=== PATIENT | female | born 1935 | race Caucasian/White ===

== ENCOUNTER 2018-07-07 12:13 | Inpatient (IN) ==
[2018-07-07] MEDS: *HR* OxyCODONE/APAP 7.5/325 TABLET PO PRN (18:07)
[2018-07-07] MEDS: Gabapentin 100 MG CAPSULE PO SCH (20:50)
[2018-07-07] MEDS ORDERED: Gabapentin 100 MG CAPSULE PO SCH (21:00)
[2018-07-08] MEDS: *HR* OxyCODONE/APAP 7.5/325 TABLET PO PRN ×3 (06:00→19:31)
[2018-07-08] MEDS ORDERED: NON-FORMULARY MEDICATION 1 EACH EACH (Alendronate Sodium [Fosamax] 10 MG) PO SCH (09:00)
[2018-07-08] MEDS: Cholecalciferol (D-3) 1,000 UNIT TABLET PO SCH (09:37)
[2018-07-08] MEDS: BuPROPion XL (24 HR) 150 MG TABLET PO SCH (09:37)
[2018-07-08] MEDS: Gabapentin 100 MG CAPSULE PO SCH ×2 (09:37→19:31)
[2018-07-08] MEDS: Ondansetron ODT 4 MG TAB.RAPDIS PO SCH (09:37)
[2018-07-08] MEDS: Furosemide 20 MG TABLET PO SCH (09:37)
[2018-07-08] MEDS: *HR* FentaNYL PATCH 12 MCG PATCH TD SCH (15:18)
--- NOTE | 2018-07-08 15:47 | Internal Med History&Physical ---
Date of Encounter: 07/08/18 Time of Encounter: 15:15 Assessment and Plan (1) Dyspnea on exertion Current visit: No Status: Acute Etiology not determined with certainty. Room air oximetry will be checked on [address] will be done (2) GERD (gastroesophageal reflux disease) Current visit: Yes Status: Acute Continue PPI. Qualifiers: Esophagitis presence: esophagitis presence not specified Qualified Code(s): K21.9 - Gastro-esophageal reflux disease without esophagitis (3) Anemia Current visit: Yes Status: Acute Possibly due to chronic kidney disease. Check anemia testing in a.m. Qualifiers: Anemia type: unspecified type Qualified Code(s): D64.9 - Anemia, unspecified (4) DJD (degenerative joint disease) Current visit: Yes Status: Chronic Continue present meds Qualifiers: Osteoarthritis location: unspecified site Osteoarthritis type: unspecified Qualified Code(s): M19.90 - Unspecified osteoarthritis, unspecified site (5) HTN (hypertension) Current visit: No Status: Chronic Continue lisinopril Qualifiers: Hypertension type: essential hypertension Qualified Code(s): I10 - Essential (primary) hypertension (6) CKD (chronic kidney disease) Current visit: No Status: Chronic Present on all labs since 2014. Continue to monitor. Qualifiers: Chronic kidney disease stage: stage 3 (moderate) Qualified Code(s): N18.3 - Chronic kidney disease, stage 3 (moderate) Internal Medicine - H&P: HPI Chief complaint: Dyspnea Admitted From: Hospital to Hospital Transfer Plans for Post Hospital Care: Home History of present illness: Ms. Liao is a 83 year old female who was hospitalized at [facility] July 03 after she was sent to ER from a cardiology outpatient appointment because of dyspnea on exertion and chest discomfort. Workup during hospitalization included a Regadenoson EST which showed no EKG or perfusion evidence of ischemia. Echocardiogram on 07/03/2018 showed LVEF of 60-65%. Interventricular septum and posterior wall thickness measurements were normal. The E/A ratio was 1.2. There was mild mitral regurgitation and mild tricuspid regurgitation reported. There was reported to be no pulmonary hypertension although estimated RVSP was not recorded. She was transferred to [facility] swing bed for rehabilitation therapy prior to returning to independent living. Cardiovascular history is pertinent for hypertension. She denies [place] DVT or pulmonary embolus. Past Med Surg Social Fam HX - Past Medical History Medical history: hypertension, other Psychiatric history: depression - Past Surgical History Additional surgical history: back surgery x 3 - Social History Smoking Status: Never smoker Smokeless Tobacco Status: No Alcohol use: none Drug use: none - Family History Mother History Unknown: Yes Internal Medicine - H&P: Meds Alendronate Sodium [Fosamax] 10 mg PO DAILY 06/05/18 [History] BuPROPion XL (24 HR) [Wellbutrin Xl] 300 mg PO DAILY 06/05/18 [History] Cholecalciferol (Vitamin D3) [Vitamin D3] 2,000 unit PO DAILY 06/05/18 [History] Esomeprazole Magnesium [Nexium] 40 mg PO DAILY 06/05/18 [History] Lisinopril [Zestril] 10 mg PO DAILY 06/05/18 [History] Ondansetron HCl [Zofran] 4 mg PO DAILY 06/05/18 [History] Simvastatin [Zocor] 10 mg PO DAILY 06/05/18 [History] Furosemide [Lasix] 10 mg PO DAILY #30 tablet 07/04/18 [Rx] FentaNYL PATCH [Duragesic] 12 mcg TD Q72H 6 Days #2 patch.td72 07/07/18 [Rx] Gabapentin [Neurontin] 100 mg PO BID #4 capsule 07/07/18 [Rx] Allergy/AdvReac Type Severity Reaction Status Date / Time Amoxicillin [From Augmentin] Allergy Hives Verified 06/05/18 12:23 clavulanic acid Allergy Hives Verified 06/05/18 12:23 [From Augmentin] All Systems PM: A 10-system review of systems was performed and is negative for pertinent findings except as documented above in the HPI. Review of systems: Gen.: She states her weight has been overall stable in the past year Cardiovascular: As per history of present illness Respiratory: She smoked from approximately age [age] up to one pack per day. She denies known chronic lung disease. GI: She has hiatal hernia/GERD. She denies disorders of her liver gallbladder or exocrine pancreas : She was unaware she had chronic kidney disease. She denies other kidney or bladder disorders Neurologic: She denies large distribution strokes or seizures. Endocrine: She has hyperlipidemia. She denies diabetes or thyroid disease Hematology/oncology: She reports cervical cancer with curative hysterectomy in 1963. She was unaware she had anemia. She denies internal malignancies Psychiatric: She has anxiety depression but denies other mental health diagnoses. [place] skeletal: She has DJD. She reports previous back fractures with resultant chronic back pain but denies gout or other bone joint or muscle disorders. - Constitutional Vitals: Temp Pulse Resp BP Pulse Ox 98.1 F 95 15 126/69 92 07/08/18 06:41 07/08/18 06:41 07/08/18 06:41 07/08/18 06:41 07/08/18 06:41 Exam: Gen.: She is a well-developed well-nourished female sitting in a chair at bedside who appears in no acute distress HEENT: Head is atraumatic and normocephalic. Eyes: EOMI. There is no scleral icterus. Mouth: Mucosa is moist. Neck: Supple and nontender. There is no thyromegaly or adenopathy noted. Heart: Regular without murmurs gallops or ectopics Lungs: No wheezes or crackles are heard. Abdomen: Soft and nontender. No masses or guarding are noted. Exam is somewhat limited because she is in a seated position. Extremities: She has chronic venous stasis pigmentation changes of her lower legs. Dorsalis pedis and posttibial pulses are trace to 1+ palpable bilaterally. Neurologic: Mental status: She is talkative and a good historian. Cranial nerves: Smile is symmetric. Forehead wrinkles bilaterally. Tongue protrudes midline. EOMI. Motor: There is no pronator drift. Cerebellar: Finger to nose is intact bilaterally. Skin: Warm and dry
[2018-07-09] MEDS: *HR* OxyCODONE/APAP 7.5/325 TABLET PO PRN ×3 (06:49→23:38)
[2018-07-09] MEDS: Gabapentin 100 MG CAPSULE PO SCH ×2 (10:53→20:45)
[2018-07-09] MEDS: Furosemide 20 MG TABLET PO SCH (10:53)
[2018-07-09] MEDS: Cholecalciferol (D-3) 1,000 UNIT TABLET PO SCH (10:53)
[2018-07-09] MEDS: BuPROPion XL (24 HR) 150 MG TABLET PO SCH (10:53)
[2018-07-09] MEDS: Ondansetron ODT 4 MG TAB.RAPDIS PO SCH (10:54)
--- NOTE | 2018-07-09 17:31 | Internal Med Progress Note ---
Date of Encounter: 07/09/18 Time of Encounter: 17:24 - Assessment and plan (1) Dyspnea on exertion Current Visit: No Status: Acute Assessment and plan: July 09. Continue present regimen. Check labs in a.m. (2) GERD (gastroesophageal reflux disease) Current Visit: Yes Status: Acute Assessment and plan: July 09. Continue PPI. Qualifiers: Esophagitis presence: esophagitis presence not specified Qualified Code(s): K21.9 - Gastro-esophageal reflux disease without esophagitis (3) Anemia Current Visit: Yes Status: Acute Assessment and plan: July 09. Check labs in a.m. Qualifiers: Anemia type: unspecified type Qualified Code(s): D64.9 - Anemia, unspecified (4) DJD (degenerative joint disease) Current Visit: Yes Status: Chronic Assessment and plan: July 09. Continue present meds Qualifiers: Osteoarthritis location: unspecified site Osteoarthritis type: unspecified Qualified Code(s): M19.90 - Unspecified osteoarthritis, unspecified site (5) HTN (hypertension) Current Visit: No Status: Chronic Assessment and plan: July 09. Continue lisinopril Qualifiers: Hypertension type: essential hypertension Qualified Code(s): I10 - Essential (primary) hypertension (6) CKD (chronic kidney disease) Current Visit: No Status: Chronic Assessment and plan: July 09. Continue to monitor Qualifiers: Chronic kidney disease stage: stage 3 (moderate) Qualified Code(s): N18.3 - Chronic kidney disease, stage 3 (moderate) - Subjective Interval history: July 09. She has no new complaints and feels well. She denies dyspnea or chest pain. - Constitutional Vitals: Temp Pulse Resp BP Pulse Ox 98.2 F 93 16 94/55 95 07/09/18 11:09 07/09/18 11:09 07/09/18 11:09 07/09/18 11:09 07/09/18 11:09 Exam: She is resting comfortably in a chair at bedside and appears in no acute distress. Her affect is bright and cheerful. I reviewed her medications. Consult Discharge Plan - Plan Referrals: Delvin Amador MD [Primary Care Provider] - 1 week
[2018-07-10] MEDS: *HR* OxyCODONE/APAP 7.5/325 TABLET PO PRN ×3 (06:43→18:48)
[2018-07-10] MEDS: Ondansetron ODT 4 MG TAB.RAPDIS PO SCH (08:27)
[2018-07-10] MEDS: Furosemide 20 MG TABLET PO SCH (08:27)
[2018-07-10] MEDS: BuPROPion XL (24 HR) 150 MG TABLET PO SCH (08:27)
[2018-07-10] MEDS: Cholecalciferol (D-3) 1,000 UNIT TABLET PO SCH (08:27)
[2018-07-10] MEDS: Gabapentin 100 MG CAPSULE PO SCH ×2 (08:27→20:26)
[2018-07-10 08:54] LABS: Basophils # 0.1 K/mcL (0.0-0.2); Basophils % 0.8 %; Eosinophils # 0.4 K/mcL (0.0-0.6); Eosinophils % 3.9 %; Hemoglobin 11.6 g/dL (11.5-15.4); Immature Granulocytes % 0.7 % (0-4); Mean Corpuscular HGB Conc 32.2 g/dL (31.6-35.5); Mean Corpuscular Volume 99.4 fL (83.0-100.0); Mean Platelet Volume 10.8 fL (9.4-12.4); Monocytes % 9.4 %; Neutrophils # 6.5 K/mcL (1.6-8.9); Platelet Count 234 K/mcL (140-400); Red Blood Count 3.62 M/mcL (3.82-4.97); Red Cell Distribution Width 12.9 % (11.5-14.5); Segmented Neutrophils % 58.2 %
[2018-07-10 10:13] LABS: Calcium 8.7 mg/dL (8.6-10.3)
[2018-07-11] MEDS: *HR* OxyCODONE/APAP 7.5/325 TABLET PO PRN ×4 (06:35→22:03)
[2018-07-11] MEDS: Ondansetron ODT 4 MG TAB.RAPDIS PO SCH (08:26)
[2018-07-11] MEDS: Gabapentin 100 MG CAPSULE PO SCH ×2 (08:26→22:03)
[2018-07-11] MEDS: BuPROPion XL (24 HR) 150 MG TABLET PO SCH (08:26)
[2018-07-11] MEDS: Cholecalciferol (D-3) 1,000 UNIT TABLET PO SCH (08:26)
[2018-07-11] MEDS: Furosemide 20 MG TABLET PO SCH (08:27)
--- NOTE | 2018-07-11 15:06 | Internal Med Progress Note ---
Date of Encounter: 07/11/18 Time of Encounter: 14:55 - Assessment and plan (1) Dyspnea on exertion Current Visit: No Status: Acute Assessment and plan: July 09. Continue present regimen. Check labs in a.m. July 10. BN peptide was 31 yesterday. BUN and creatinine have risen to 39 and 1.68. Continue to monitor. (2) GERD (gastroesophageal reflux disease) Current Visit: Yes Status: Acute Assessment and plan: July 09. Continue PPI. Qualifiers: Esophagitis presence: esophagitis presence not specified Qualified Code(s): K21.9 - Gastro-esophageal reflux disease without esophagitis (3) Anemia Current Visit: Yes Status: Acute Assessment and plan: July 09. Check labs in a.m. July 11. Hemoglobin stable at 11.6. Qualifiers: Anemia type: unspecified type Qualified Code(s): D64.9 - Anemia, unspeci fied (4) DJD (degenerative joint disease) Current Visit: Yes Status: Chronic Assessment and plan: July 09. Continue present meds Qualifiers: Osteoarthritis location: unspecified site Osteoarthritis type: unspecified Qualified Code(s): M19.90 - Unspecified osteoarthritis, unspecified site (5) HTN (hypertension) Current Visit: No Status: Chronic Assessment and plan: July 09. Continue lisinopril Qualifiers: Hypertension type: essential hypertension Qualified Code(s): I10 - Essential (primary) hypertension (6) CKD (chronic kidney disease) Current Visit: No Status: Chronic Assessment and plan: July 09. Continue to monitor Qualifiers: Chronic kidney disease stage: stage 3 (moderate) Qualified Code(s): N18.3 - Chronic kidney disease, stage 3 (moderate) - Subjective Interval history: July 09. She has no new complaints and feels well. She denies dyspnea or chest pain. July 11. She has no new complaints. - Constitutional Vitals: Temp Pulse Resp BP Pulse Ox 97.7 F 90 16 104/64 95 07/11/18 07:02 07/11/18 07:02 07/11/18 07:02 07/11/18 07:02 07/11/18 07:02 Exam: She is resting comfortably in bed and appears in no acute distress. Her affect is overall cheerful. I reviewed her medications and lab results. Internal Medicine: Result - Labs CBC & Chem 7: 07/10/18 08:40 07/10/18 08:40 Consult Discharge Plan - Plan Referrals: Delvin Amador MD [Primary Care Provider] - 1 week
[2018-07-11] MEDS: *HR* FentaNYL PATCH 12 MCG PATCH TD SCH (15:23)
[2018-07-12 07:05] VITALS: BP 89/58
[2018-07-12] MEDS: Cholecalciferol (D-3) 1,000 UNIT TABLET PO SCH (08:23)
[2018-07-12] MEDS: BuPROPion XL (24 HR) 150 MG TABLET PO SCH (08:24)
[2018-07-12] MEDS: Furosemide 20 MG TABLET PO SCH (08:24)
[2018-07-12] MEDS: Ondansetron ODT 4 MG TAB.RAPDIS PO SCH (08:25)
[2018-07-12] MEDS: Gabapentin 100 MG CAPSULE PO SCH (08:25)
--- NOTE | 2018-07-13 10:35 | Discharge Summary ---
Date of Encounter: 07/13/18 Time of Encounter: 10:30 - Discharge Diagnosis (1) Dyspnea on exertion Priority: Primary Status: Acute (2) GERD (gastroesophageal reflux disease) Priority: Secondary Status: Acute Qualifiers: Esophagitis presence: esophagitis presence not specified Qualified Code(s): K21.9 - Gastro-esophageal reflux disease without esophagitis (3) Anemia Priority: Secondary Status: Acute Qualifiers: Anemia type: unspecified type Qualified Code(s): D64.9 - Anemia, unspecified (4) DJD (degenerative joint disease) Priority: Secondary Status: Chronic Qualifiers: Osteoarthritis location: unspecified site Osteoarthritis type: unspecified Qualified Code(s): M19.90 - Unspecified osteoarthritis, unspecified site (5) HTN (hypertension) Priority: Secondary Status: Chronic Qualifiers: Hypertension type: essential hypertension Qualified Code(s): I10 - Essential (primary) hypertension (6) CKD (chronic kidney disease) Priority: Secondary Status: Chronic Qualifiers: Chronic kidney disease stage: stage 3 (moderate) Qualified Code(s): N18.3 - Chronic kidney disease, stage 3 (moderate) Hospital course: Ms. Liao is a 83 year old female who was hospitalized at [facility] July 03- after she was sent to ER from a cardiology outpatient appointment because of dyspnea on exertion and chest discomfort. Workup during hospitalization included a Regadenoson EST which showed no EKG or perfusion evidence of ischemia. Echocardiogram on 07/03/2018 showed LVEF of 60-65%. Interventricular septum and posterior wall thickness measurements were normal. The E/A ratio was 1.2. There was mild mitral regurgitation and mild tricuspid regurgitation reported. There was reported to be no pulmonary hypertension although estimated RVSP was not recorded. She was transferred to [facility] swing bed for rehabilitation therapy prior to returning to independent living. Initial orders were written by the discharging physicians at [facility]. I saw her on July 08 and performed a swing bed history and physical. She had physical therapy and occupational therapy evaluations with ongoing interventions. Her dyspnea lessened and she progressed satisfactorily and therapy. BN peptide was normal at 31 on July 09. On July 12 she went home on a day pass. She called the staff from home and stated she would not be returning back to swing bed. - Time Spent with Patient Total time spent providing and/or coordinating discharge services: - Discharge Medications Home Medications: Alendronate Sodium [Fosamax] 10 mg PO DAILY 06/05/18 [History] BuPROPion XL (24 HR) [Wellbutrin Xl] 300 mg PO DAILY 06/05/18 [History] Cholecalciferol (Vitamin D3) [Vitamin D3] 2,000 unit PO DAILY 06/05/18 [History] Esomeprazole Magnesium [Nexium] 40 mg PO DAILY 06/05/18 [History] Lisinopril [Zestril] 10 mg PO DAILY 06/05/18 [History] Ondansetron HCl [Zofran] 4 mg PO DAILY 06/05/18 [History] Simvastatin [Zocor] 10 mg PO DAILY 06/05/18 [History] Furosemide [Lasix] 10 mg PO DAILY #30 tablet 07/04/18 [Rx] Gabapentin [Neurontin] 100 mg PO BID #4 capsule 07/07/18 [Rx] Allergies/Adverse Reactions: Allergy/AdvReac Type Severity Reaction Status Date / Time Amoxicillin [From Augmentin] Allergy Hives Verified 06/05/18 12:23 clavulanic acid Allergy Hives Verified 06/05/18 12:23 [From Augmentin] Date of admission: 07/07/18 15:35 Consults: 07/07/18 14:21 Consult to Occupational Therapy [CONS] Routine Comment: Evaluate, develop and implement POC Reason for Consult: Evaluate, develop and implement POC Does patient have active BEDREST order?: No Is patient medically & hemodynamically stable?: Yes Patient assessed for mobility or mobilized this visit?: No Consult to Physical Therapy [CONS] Routine Comment: Evaluate, develop and implement POC Reason for Consult: Evaluate, develop and implement POC Does patient have active BEDREST order?: No Is patient medically & hemodynamically stable?: Yes Patient assessed for mobility or mobilized this visit?: No - Constitutional Vitals: Temp Pulse Resp BP Pulse Ox 98.3 F 90 14 89/58 95 07/12/18 07:02 07/12/18 07:02 07/12/18 07:02 07/12/18 07:02 07/12/18 07:02 - Patient Status Disposition: Left Against Medical Advice - Discharge Instructions Follow Up With: Delvin Amador MD [Primary Care Provider] - 1 week
== END 2018-07-13 | disposition left against medical advice (07) | DRG 204 ==
LOC: INPPIK 15:35
PROVIDERS: ADMIT Internal Medicine; ATTEND Internal Medicine